=== PATIENT | female | born 1995 | race Caucasian/White ===

== ENCOUNTER 2020-12-31 14:47 | Observation (INO) | payer MEDICAID ==
[~2020-12-31] VITALS: Ht 165.1 cm; Wt 90.7 kg
== END 2020-12-31 16:25 | disposition home or self-care (01) ==
LOC: SPU 14:47
PROVIDERS: ADMIT Obstetrics & Gynecology; ATTEND Obstetrics & Gynecology
DX: O36.8130 Decreased fetal movements, third trimester, not applicable or unspecified (principal); Z3A.39 39 weeks gestation of pregnancy
CPT/HCPCS: 81002; G0378